=== PATIENT | female | born 1945 | race Caucasian/White ===

== ENCOUNTER 2017-10-03 22:22 | Emergency (ER) | payer MEDICARE, BC ==
[2017-10-03] MEDS ORDERED: traMADol 50 MG Tab PO ONE (22:48)
--- NOTE | 2017-10-03 22:52 | EDM.PDOC ---
ED HPI GENERAL MEDICAL PROBLEM - General Chief Complaint: Upper Extremity Injury/Pain Stated Complaint: FELL ON ICE HAVING PAIN IN HER BACK AND NECK Time Seen by Provider: 10/03/17 22:40 - History of Present Illness INITIAL COMMENTS - FREE TEXT/NARRATIVE: HISTORY AND PHYSICAL: History of present illness: Patient is a 72-year-old female who follows at [facility] for regular medical care and presents after slipping on the ice and falling backwards landing on her butt and potentially her left shoulder area. She is not sure if she had an outstretched arm on the left side. She complains of pain to the anterior shoulder and clavicle area but not to the posterior shoulder not to the humerus elbow forearm wrist or hand on the left side. The patient did not hit her head pass out or black out and has no head neck or back pain. She has no buttocks or lower lumbar pain. She says that she had to crawl to get up sensitive although not discretely painful and she doesn't feel like there is any bony abnormalities there. She says that since falling she just feels like she's very weak in a generalized fashion. She did not take anything for pain prior to coming here. Prior to these events the patient was in her usual state of good health Review of systems: As per history of present illness and below otherwise all systems reviewed and negative. Past medical history: As per history of present illness and as reviewed below otherwise noncontributory. Surgical history: As per history of present illness and as reviewed below otherwise noncontributory. Social history: No reported history of drug or alcohol abuse. Family history: As per history of present illness and as reviewed below otherwise noncontributory. Physical exam: Gen.: Well-developed overweight female who moves easily in the ED without distress including the left upper extremity. Vital signs were noted by me HEENT: Atraumatic, normocephalic, pupils reactive, negative for conjunctival pallor or scleral icterus, mucous membranes moist, throat clear, neck supple, nontender, trachea midline. There are no midline step-offs tenderness defects of the cervical spine Lungs: Clear to auscultation, breath sounds equal bilaterally, chest nontender. There is no discrete chest wall tenderness especially in the left anterior chest wall no erythema ecchymosis or crepitus Heart: S1S2, regular rate and rhythm no overt murmurs Abdomen: Soft, nondistended, nontender. NABS Pelvis: Stable nontender. Genitourinary: Deferred. Rectal: Deferred. Extremities: Atraumatic appearing throughout with some discrete tenderness at palpation of the left clavicle area more medially as well as the anterior shoulder but there is no bruising erythema warmth or fullness appreciated. The remainder of the humerus elbow forearm wrist and hand on the left side are intact nontender and without defects or deformities. At the knees bilaterally there is soft tissue reddish erythema consistent with the patient crawling but there is no break in the skin bony deformities bony tenderness or effusions. The legs are, negative for cords or calf pain. Neurovascular unremarkable. There are chronic skin changes of the lower extremities Neuro: Awake, alert, oriented. Cranial nerves II through XII unremarkable. Cerebellum unremarkable. Motor and sensory unremarkable throughout. Exam nonfocal. Back: There are no midline step-offs tenderness to the thoracic or lumbar spine. Diagnostics: X-ray left clavicle and shoulder Therapeutics: Tramadol Impression: Fall with left shoulder injury/contusion and bilateral knee contusions Definitive disposition and diagnosis as appropriate pending reevaluation and review of above. Left Shoulder Pain Score (Numeric/FACES): 8 - Related Data Allergies Allergy/AdvReac Type Severity Reaction Status Date / Time rofecoxib [From Vioxx] Allergy Other Verified 10/03/17 22:47 Home Meds: Home Meds Budesonide/Formoterol Fumarate [Symbicort 160-4.5 Mcg Inhaler] 1 puff IH DAILY 10/03/17 [History] Chlorthalidone [Chlorthalidone] 25 mg PO DAILY 10/03/17 [History] Levothyroxine Sodium [Synthroid] 300 mcg PO DAILY 10/03/17 [History] Spironolactone 1 tab PO DAILY 10/03/17 [History] buPROPion [Wellbutrin SR] 150 mg PO DAILY 10/03/17 [History] Review of Systems - Review of Systems Review Of Systems: ROS reveals no pertinent complaints other than HPI. ED EXAM, GENERAL - Physical Exam Exam: See Below (See dictation) Course - Vital Signs Last Recorded V/S: Last Vital Signs Temp 36.6 C 10/03/17 22:39 Pulse 98 10/03/17 22:39 Resp 12 10/03/17 22:39 BP 140/70 10/03/17 22:39 Pulse Ox 97 10/03/17 22:39 - Orders/Labs/Meds Orders: Active Orders 24 hr Category Date Time Status Clavicle Lt [CR] Stat Exams 10/03/17 22:47 Taken Shoulder Comp Lt [CR] Stat Exams 10/03/17 22:47 Taken Meds: Medications Discontinued Medications Generic Name Dose Route Start Last Admin Trade Name Freq PRN Reason Stop Dose Admin Tramadol HCl 50 mg 10/03/17 22:48 10/03/17 22:53 Ultram PO 10/03/17 22:49 50 mg ONETIME ONE Administration Departure - Departure Time of Disposition: 23:50 Disposition: Home, Self-Care 01 Condition: Good Clinical Impression: Fall Qualifiers: Encounter type: initial encounter Qualified Code(s): W19.XXXA - Unspecified fall, initial encounter Shoulder contusion Qualifiers: Encounter type: initial encounter Laterality: left Qualified Code(s): S40.012A - Contusion of left shoulder, initial encounter - Discharge Information Referrals: Areli Esparza DO [Primary Care Provider] - Forms: ED Department Discharge Additional Instructions: The following information is given to patients seen in the emergency department who are being discharged to home. This information is to outline your options for follow-up care. We provide all patients seen in our emergency department with a follow-up referral. The need for follow-up, as well as the timing and circumstances, are variable depending upon the specifics of your emergency department visit. If you don't have a primary care physician on staff, we will provide you with a referral. We always advise you to contact your personal physician following an emergency department visit to inform them of the circumstance of the visit and for follow-up with them and/or the need for any referrals to a consulting specialist. The emergency department will also refer you to a specialist when appropriate. This referral assures that you have the opportunity for followup care with a specialist. All of these measure are taken in an effort to provide you with optimal care, which includes your followup. Under all circumstances we always encourage you to contact your private physician who remains a resource for coordinating your care. When calling for followup care, please make the office aware that this follow-up is from your recent emergency room visit. If for any reason you are refused follow-up, please contact the [facility] emergency department at and ask to speak to the emergency department charge nurse. [facility] Primary care- Internal Medicine and Family [facility] [address] [place] [id number] [place] [address] Please try to prevent future falls and use ice to areas of discomfort. Please expect aches and pains over the next several days to one week use over-the- counter Tylenol for pain or tramadol you have been prescribed tonight. Return to ER as needed and as discussed. Please call and follow-up with your provider in the clinic in the next few days. - My Orders Last 24 Hours: My Active Orders 10/03/17 22:47 Clavicle Lt [CR] Stat Shoulder Comp Lt [CR] Stat - Assessment/Plan Last 24 Hours: My Active Orders 10/03/17 22:47 Clavicle Lt [CR] Stat Shoulder Comp Lt [CR] Stat
--- NOTE | 2017-10-05 16:26 | CR ---
EXAM DATE: 10/03/17 PATIENT'S AGE: 72 Patient: MARIPOSA CASPER Facility: [place], [place] Site Site : 1945 Study: XRay Shoulder Left [id number] 11:23:52 PM Ordering Physician: JOSE CHANEL MD Final Report: Indication: Pain. Technique: Left shoulder three views. Comparison: Left clavicle same day. Findings: No acute fracture or dislocation. Moderate degenerative changes of the acromioclavicular and glenohumeral joints. Cortical irregularity about the lateral acromion. No additional osseous abnormality. Soft tissues as imaged are unremarkable. Impression: No acute osseous abnormality. Dictated by Mike Renee MD @ 10/03/2017 11:27:31 PM Dictated by: Mike Renee MD @ 10/03/2017 23:27:36 (Electronic Signature) Report Signed by Proxy. SOHAM
--- NOTE | 2017-10-05 16:26 | CR ---
EXAM DATE: 10/03/17 PATIENT'S AGE: 72 Patient: MARIPOSA CASPER Facility: [place], [place] Site . Site : 1945 Study: XRay Shoulder Left clavicle [id number] 11:20:56 PM Ordering Physician: Diane Allen Final Report: Indication: Pain. Technique: Left clavicle two views. Comparison: Left shoulder same day. Findings: No acute fracture or dislocation. Moderate degenerative changes of the acromioclavicular and glenohumeral joints. No additional osseous abnormality. Soft tissues as imaged are unremarkable. Impression: No acute osseous abnormality. Dictated by Mike Renee MD @ 10/03/2017 11:26:11 PM Dictated by: Mike Renee MD @ 10/03/2017 23:26:16 (Electronic Signature) Report Signed by Proxy. MTDHao
== END 2017-10-03 23:55 | disposition home or self-care (01) ==
LOC: MW.ED 22:22
DX: S80.02XA Contusion of left knee, initial encounter (principal); S80.01XA Contusion of right knee, initial encounter; S40.012A Contusion of left shoulder, initial encounter; Z88.8 Allergy status to other drugs, medicaments and biological substances; Z79.899 Other long term (current) drug therapy; W00.2XXA Other fall from one level to another due to ice and snow, initial encounter
CPT/HCPCS: 73000; 73030; 99283; A9270

== ENCOUNTER 2018-02-03 09:45 | Emergency (ER) | payer MEDICARE, BC ==
--- NOTE | 2018-02-03 10:08 | EDM.PDOC ---
ED HPI GENERAL MEDICAL PROBLEM - General Chief Complaint: General Stated Complaint: FALL Time Seen by Provider: 02/03/18 10:07 Source of Information: Reports: Patient - History of Present Illness INITIAL COMMENTS - FREE TEXT/NARRATIVE: HISTORY AND PHYSICAL: History of present illness: [Patient presents with right wrist pain 4 out of 10 nonradiating associated with a fall in her home yesterday morning, she became entangled in her oxygen hosing, falling to the floor she did strike the right side of her forehead on the floor there is contusion/bruising tender above the brow no step-off. Patient denies loss of consciousness She also complains of right-sided rib pain again 4 out of 10 nonradiating lower chest margins no fever nausea vomiting chills sweats no chest pain shortness breath headache dizziness palpitation no bowel or urine symptoms ] Review of systems: As per history of present illness and below otherwise all systems reviewed and negative. Past medical history: As per history of present illness and as reviewed below otherwise noncontributory. Surgical history: As per history of present illness and as reviewed below otherwise noncontributory. Social history: No reported history of drug or alcohol abuse. Family history: As per history of present illness and as reviewed below otherwise noncontributory. Physical exam: HEENT: Atraumatic, normocephalic, pupils reactive, negative for conjunctival pallor or scleral icterus, mucous membranes moist, throat clear, neck supple, nontender, trachea midline.right raccoon 9 noted Lungs: Clear to auscultation, breath sounds equal bilaterally, chest nontender. Heart: S1S2, regular, negative for clicks, rubs, or JVD. Abdomen: Soft, nondistended, nontender. Negative for masses or hepatosplenomegaly. Negative for costovertebral tenderness. Pelvis: Stable nontender. Genitourinary: Deferred. Rectal: Deferred. Extremities: Atraumatic, negative for cords or calf pain. Neurovascular unremarkable. Neuro: Awake, alert, oriented. Cranial nerves II through XII unremarkable. Cerebellum unremarkable. Motor and sensory unremarkable throughout. Exam nonfocal. Diagnostics: [Right wrist complete Chest with right ribs Head CT no contrast Cervical spine no contrast ] Therapeutics: [ rest ice ibuprofen ] Impression: [ right wrist sprain contusion right forehead ] Definitive disposition and diagnosis as appropriate pending reevaluation and review of above. right ribs and arm Pain Score (Numeric/FACES): 7 - Related Data Allergies Allergy/AdvReac Type Severity Reaction Status Date / Time rofecoxib [From Vioxx] Allergy Other Verified 02/03/18 09:57 Home Meds: Home Meds Budesonide/Formoterol Fumarate [Symbicort 160-4.5 Mcg Inhaler] 1 puff IH DAILY 10/03/17 [History] Chlorthalidone 25 mg PO DAILY 10/03/17 [History] Levothyroxine Sodium [Synthroid] 300 mcg PO DAILY 10/03/17 [History] Spironolactone 1 tab PO DAILY 10/03/17 [History] buPROPion [Wellbutrin SR] 150 mg PO DAILY 10/03/17 [History] Past Medical History HEENT History: Reports: Cataract Respiratory History: Reports: Asthma, COPD, Sleep Apnea Other Respiratory History: On Bipap and O2 at home [employer] History: Reports: Endocrine/Metabolic History: Reports: Diabetes, Type II, Hypothyroidism - Infectious Disease History Infectious Disease History: Reports: Chicken Pox - Past Surgical History HEENT Surgical History: Reports: Cataract Surgery, Tonsillectomy GI Surgical History: Reports: Appendectomy Female Surgical History: Reports: Hysterectomy, Salpingo-Oophorectomy Musculoskeletal Surgical History: Reports: Arthroscopic Knee, Carpal Tunnel, Ganglion Cyst Social & Family History - Tobacco Use Smoking Status *Q: Former Smoker Years of Tobacco use: 28 Packs/Tins Daily: 0.3 Used Tobacco, but Quit: Yes Month/Year Tobacco Last Used: 1991 - Caffeine Use Caffeine Use: Reports: Coffee, Soda - Recreational Drug Use Recreational Drug Use: No ED ROS GENERAL - Review of Systems Review Of Systems: ROS reveals no pertinent complaints other than HPI. ED EXAM, GENERAL - Physical Exam Exam: See Below Course - Vital Signs Last Recorded V/S: Last Vital Signs Temp 97.5 F 02/03/18 10:03 Pulse 89 02/03/18 10:03 Resp 16 02/03/18 10:03 BP 135/91 H 02/03/18 10:03 Pulse Ox 92 L 02/03/18 10:03 Departure - Departure Time of Disposition: 11:29 Disposition: Home, Self-Care 01 Condition: Good Clinical Impression: Sprain and strain, Contusion - Discharge Information Referrals: Areli Esparza DO [Primary Care Provider] - Forms: ED Department Discharge Additional Instructions: Rest Ice 20 minute intervals 3 times daily as needeTylenol or ibuprofen as needed Return if symptoms persist or worsen Follow-up with primary care as scheduled Continue with her ophthalmology appointment tomorrow as scheduled The following information is given to patients seen in the emergency department who are being discharged to home. This information is to outline your options for follow-up care. We provide all patients seen in our emergency department with a follow-up referral. The need for follow-up, as well as the timing and circumstances, are variable depending upon the specifics of your emergency department visit. If you don't have a primary care physician on staff, we will provide you with a referral. We always advise you to contact your personal physician following an emergency department visit to inform them of the circumstance of the visit and for follow-up with them and/or the need for any referrals to a consulting specialist. The emergency department will also refer you to a specialist when appropriate. This referral assures that you have the opportunity for follow-up care with a specialist. All of these measure are taken in an effort to provide you with optimal care, which includes your follow-up. Under all circumstances we always encourage you to contact your private physician who remains a resource for coordinating your care. When calling for follow-up care, please make the office aware that this follow-up is from your recent emergency room visit. If for any reason you are refused follow-up, please contact the [facility] emergency department at and asked to speak to the emergency department charge nurse.
--- NOTE | 2018-02-03 10:59 | CT ---
EXAMINATION: Non contrast CT head. Coronal and sagittal reformats. HISTORY: Fall FINDINGS: No evidence of intra or extra axial hemorrhage, mass, midline shift, hydrocephalus or edema. Mild pe riventricular and subcortical white matter hypodensities. No hypoattenuation changes in the major vascular territories to suggest acute infarct. No abnormal intracranial calcifications are detected. No evidence of substantial vascular calcificat ions. Tiny mucous retention cyst within the right maxillary sinus. Mastoid air cells are clear. Orbits and globes are symmetric. Pituitary fossa appears unremarkable. Calvarium is intact. No evidence of skull fracture. IMPRESSION: 1. No acute intracranial findings. 2. Mild small vessel ischemic changes.
--- NOTE | 2018-02-03 11:14 | CT ---
EXAMINATION: CT cervical spine HISTORY: Fall COMPARISON: None TECHNIQUE: AP and lateral views FINDINGS: The cervical spinal alignment appears grossly normal. The vertebral body heights appear manjula ntained. Bone mineralization is normal. Paravertebral soft tissues appear normal. Marginal osteophyte s are noted. Osteophyte disc complex noted at C6-C7. There is a 5 mm nodule within the right apex. IMPRESSION: 1. Degenerative changes without acute osseous abnormality identified. 2. There is a 5 mm nodule within the right apex. If the patient has known risk factors consider follo w-up imaging in 12 months.
--- NOTE | 2018-02-03 11:17 | CR ---
EXAMINATION: PA chest and right RIBS HISTORY: Fall. FINDINGS: The trachea is midline. The cardiomediastinal silhouette is within normal limits. No pulmonary infilt rates, effusions or pneumothorax. Osseous structures appear unremarkable. No displaced rib fracture noted. IMPRESSION: No acute cardiopulmonary process.
--- NOTE | 2018-02-03 11:26 | CR ---
EXAMINATION: Right wrist HISTORY: Follow-up COMPARISON: None TECHNIQUE: 3 views FINDINGS/IMPRESSION: There is no acute osseous abnormality, dislocation, or fracture. Bone mineraliza tion appears normal. 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 Mild negative ulnar variance.
== END 2018-02-03 11:45 | disposition home or self-care (01) ==
LOC: MW.ED 09:45
DX: S63.501A Unspecified sprain of right wrist, initial encounter (principal); S66.911A Strain of unspecified muscle, fascia and tendon at wrist and hand level, right hand, initial encounter; S00.83XA Contusion of other part of head, initial encounter; J44.9 Chronic obstructive pulmonary disease, unspecified; E11.9 Type 2 diabetes mellitus without complications; E03.9 Hypothyroidism, unspecified; Z87.891 Personal history of nicotine dependence; Z79.899 Other long term (current) drug therapy; Z88.8 Allergy status to other drugs, medicaments and biological substances; W19.XXXA Unspecified fall, initial encounter; Y92.009 Unspecified place in unspecified non-institutional (private) residence as the place of occurrence of the external cause
CPT/HCPCS: 70450; 70450-26; 71101-26-RT; 71101-RT; 72125; 72125-26; 73110-26-RT; 73110-RT; 99284; 99284-25